=== PATIENT | male | born 1960 | race Caucasian/White ===

== ENCOUNTER 2016-08-14 11:30 | Day surgery (SDC) | payer BC ==
[~2016-08-14] VITALS: Ht 182.9 cm; Wt 138.0 kg
[~2016-08-14 11:30] MED LIST: ATORVASTATIN CA40 MG PO; AUGMENTIN875 MG PO; DIGOXIN125 MCG PO; FLINTSTONES CO1 EAC1 PO; FLOMAX0.4 MG PO; FUROSEMIDE20 MG PO; FUROSEMIDE40 MG PO; HYDROCODON-ACE1 EAC7 PO; LISINOPRIL20 MG PO; LISINOPRIL40 MG PO; LO-DOSE ASPIRIN81 M2 PO; METFORMIN HCL850 MG PO; METOPROLOL SUC100 MG PO; MIRAPEX0.5 MG PO; NORCO 5/3251 TABLET PO; OXYCODONE HCL20 M1 PO; PANTOPRAZOLE SO40 MG PO; POTASSIUM CHLO10 ME3 PO; SALINE NASAL SP45 ML BOTH NARES; SIMVASTATIN40 MG PO; TRAZODONE HCL100 MG PO; WARFARIN SODIUM4 MG PO; ZALEPLON10 MG PO
[2016-08-14 13:26] LABS: POINT-OF-CARE METER ID UU13113819
== END 2016-08-14 14:45 | disposition home or self-care (01) ==
LOC: CATH 11:30
PROVIDERS: Internal Medicine Cardiovascular Disease
PROC: 5A2204Z Restoration of Cardiac Rhythm, Single (ICD-10-PCS; principal; 2016-08-14)
DX: I48.1 Persistent atrial fibrillation (principal); I25.10 Atherosclerotic heart disease of native coronary artery without angina pectoris; Z95.1 Presence of aortocoronary bypass graft; I71.02 Dissection of abdominal aorta; I71.01 Dissection of thoracic aorta; E78.01 Familial hypercholesterolemia; E66.01 Morbid (severe) obesity due to excess calories; Z68.41 Body mass index [BMI] 40.0-44.9, adult; Z87.891 Personal history of nicotine dependence; Z95.2 Presence of prosthetic heart valve; I42.0 Dilated cardiomyopathy; Z98.84 Bariatric surgery status; I10 Essential (primary) hypertension; E11.9 Type 2 diabetes mellitus without complications; I47.1 Supraventricular tachycardia; Z79.01 Long term (current) use of anticoagulants; Z79.82 Long term (current) use of aspirin
CPT/HCPCS: 82948; 93005

== ENCOUNTER 2016-11-19 13:07 | Day surgery (SDC) | payer BC ==
[~2016-11-19] VITALS: Ht 182.9 cm; Wt 132.0 kg
== END 2016-11-19 16:00 | disposition home or self-care (01) ==
LOC: CATH 13:07
PROC: 5A2204Z Restoration of Cardiac Rhythm, Single (ICD-10-PCS; principal; 2016-11-19)
DX: I48.1 Persistent atrial fibrillation (principal); E11.9 Type 2 diabetes mellitus without complications; I25.10 Atherosclerotic heart disease of native coronary artery without angina pectoris; I10 Essential (primary) hypertension; E78.5 Hyperlipidemia, unspecified; Z95.2 Presence of prosthetic heart valve; Z95.1 Presence of aortocoronary bypass graft; Z79.01 Long term (current) use of anticoagulants
CPT/HCPCS: 93005